=== PATIENT | female | born 1970 | race Caucasian/White ===

== ENCOUNTER → 2022-07-01 15:51 | Outpatient (CLI) | payer BC, SELFPAY ==
--- NOTE | ~2022-07-01 | US_ITS ---
EXAMINATION: US thyroid DATE: 07/01/2022 16:06 INDICATION: Nontoxic thyroid nodule TECHNIQUE: Multiple ultrasound images of the thyroid were obtained. COMPARISON: None. FINDINGS: The right thyroid lobe measures 4.0 x 1.9 x 1.3 cm. The left thyroid lobe measures 4.8 x 1.0 x 1.2 c m. 9 mm solid wider than tall hypoechoic nodule with smooth margins at the junction of the right thy roid lobe and isthmus (TI-RADS 4, moderately suspicious , FNA if >=1.5 cm, annual followup is >=1 cm) . 5 mm wider than tall mixed solid and cystic nodule with smooth margins and isoechoic solid componen t (TI-RADS 2, not suspicious, no FNA recommended). Additional 4 mm nearly entirely cystic TI RADS 1 n odule in the left thyroid lobe. There is normal echotexture, echogenicity and vascular flow throughou t the surrounding thyroid gland. IMPRESSION: 1. A few subcentimeter thyroid nodules which remain below threshold for either biopsy or follow-up. Reviewed, dictated and finalized at location A. ULATOR
== END ==
PROVIDERS: PCP Nurse Practitioner Family; Visit Provider Nurse Practitioner Family
DX: E04.2 Nontoxic multinodular goiter (principal)
CPT/HCPCS: 76536

== ENCOUNTER 2023-07-18 10:50 | Outpatient (CLI) | payer BC, SELFPAY ==
--- NOTE | ~2023-07-18 | US_ITS ---
EXAMINATION: US thyroid DATE: 07/18/2023 11:07 INDICATION: Thyroid nodule. TECHNIQUE: Multiple ultrasound images of the thyroid were obtained. COMPARISON: Thyroid ultrasound 07/01/2022 FINDINGS: The right thyroid lobe measures 5.7 x 1.9 x 1.5 cm. The left thyroid lobe measures 5.1 x 1.6 x 1.7 c m. In the left thyroid lobe, there is a 6 mm mixed cystic and solid, hypoechoic, wider than tall nod ule with lobulated margin without echogenic foci (TI-RADS TR4). In the left thyroid lobe, there is a 6 mm solid, hypoechoic, wider than tall nodule with ill-defined margin without echogenic foci (TR4). In the right thyroid lobe, there is a 6 mm solid, hypoechoic, wider than tall nodule with ill-defined margin without echogenic foci (TR4). In the right thyroid lobe, there is a 6 mm solid, hypoechoic, w [id number] nodule with ill-defined margin without echogenic foci (TR4). In the thyroid isthmus, t here is a 9 mm solid, hypoechoic, wider than tall nodule with smooth margin without echogenic foci (T R4). IMPRESSION: 1. Small thyroid nodules, likely not clinically significant. No follow-up is needed. Reviewed, dictated and finalized at location E. IMPRESSION: 1. Small thyroid nodules, likely not clinically significant. No follow-up is ne eded.
== END 2023-07-18 10:51 ==
LOC: MICIMG 10:51
DX: E04.1 Nontoxic single thyroid nodule (principal)
CPT/HCPCS: 76536

== ENCOUNTER 2023-12-30 15:37 | Outpatient (CLI) | payer BC, SELFPAY ==
--- NOTE | ~2023-12-30 | DEXA_ITS ---
Bone Density Report Name: SANIA FINCH Age: 53 Sex: Female Ethnicity: White Date of : 1970 Indication: postmenopausal; screening for osteoporosis; height loss; Referring Provider: Anthony, Yadira Study: Bone densitometry was performed. Exam Date: December 30, 2023 Accession number: [id number] Bone Density: Region BMD T-score Z-score Classification AP Spine(L1-L4) 0.903 -1.3 -0.3 Osteopenia Femoral Neck (Left) 0.691 -1.4 -0.4 Osteopenia Total Hip (Left) 0.742 -1.6 -1.0 Osteopenia Femoral Neck (Right) 0.727 -1.1 -0.1 Osteopenia Total Hip (Right) 0.774 -1.4 -0.7 Osteopenia Femoral Neck Mean 0.709 -1.3 -0.2 Osteopenia Total Hip Mean 0.758 -1.5 -0.9 Osteopenia World Health Organization criteria for BMD impression classify patients as: Normal (T-score at or above -1.0), Osteopenia (T-score between -1.0 and -2.5), or Osteoporosis (T-score at or below -2.5). 10-year Fracture Risk(1): Major Osteoporotic Fracture 6.2% Hip Fracture 0.5% Reported Risk Factors: [place] (), Neck BMD=0.691, BMI=23.5 (1) FRAX(R) Version 3.08. Fracture probability calculated for an untreated patient. Fracture probability may be lower if the patient has received treatment. Clinical Information Provided by Patient: Patient maximum height was 68 Menopause Age: 53 No regular weight bearing exercise Drinks caffeinated beverages Onset of menses at age 13 Number of children 2 Impression: The patient has low bone mass, based on the Left Total Hip T-score. Discussion: BONE DENSITY IS LOW AT ONE OR MORE SKELETAL SITES. This patient's lowest T-score is low at one or more skeletal sites. It meets the World Health Organization's (WHO) criteria for ?low bone mass? (T-score between -1.0 and -2.5). The patient's 10-year risk of fracture as calculated by FRAX is less than the threshold where pharmacological therapy is recommended by the National Osteoporosis Foundation (NOF). However, all treatment decisions require clinical judgment and consideration of individual patient factors, including patient preferences, comorbidities, previous drug use, risk factors not captured in the FRAX model (e.g., frailty, falls, vitamin D deficiency, increased bone turnover, interval significant decline in bone density) and possible under or overestimation of fracture risk by FRAX. The patient should follow a healthful lifestyle (good nutrition with adequate calcium and vitamin D, and appropriate weight-bearing exercise). Follow-Up: Consider repeating this study in 2 to 3 years to reassess this patient's status, or sooner if there is some new clinical indication. Reported by: RICHARD on 01/10/2024 11:49:00 AM. Reviewed, dictated and fi
== END 2023-12-30 15:38 | disposition home or self-care (01) ==
PROVIDERS: PCP Obstetrics & Gynecology Gynecology; Visit Provider Nurse Practitioner
DX: Z78.0 Asymptomatic menopausal state (principal); M85.89 Other specified disorders of bone density and structure, multiple sites
CPT/HCPCS: 77080